=== PATIENT | male | born 1960 | race Caucasian/White ===

== ENCOUNTER 2018-05-31 12:12 | Inpatient (IN) | payer SELFPAY ==
[~2018-05-31] VITALS: Ht 177.8 cm; Wt 66.4 kg
[~2018-05-31 12:12] MED LIST: LISINOPRIL20 MG; SIMVASTATIN80 MG; ZETIA10 MG
[2018-05-31 13:00] LABS: HEMATOCRIT 38.9 % (38.0-50.0); HEMOGLOBIN 14.3 G/DL (12.5-16.6); MCH 33.8 PG (29.0-34.0); MCHC 36.8 G/DL (30.0-36.0); PLATELET COUNT 241 K/uL (156-360); RBC DIS.WIDTH-CV 11.5 % (11.8-14.6); RBC DIS.WIDTH-SD 38.9 % (39-53); RED BLOOD COUNT 4.23 M/uL (4.00-5.50); WHITE BLOOD COUNT 14.4 K/uL (4.1-10.2)
[2018-05-31 13:10] LABS: CHLORIDE 95 mEq/L (99-109); POTASSIUM 4.5 mEq/L (3.7-5.4); SODIUM 129 mEq/L (136-147)
[2018-05-31 13:12] LABS: GLUCOSE 189 mg/dL (70-99)
[2018-05-31 13:16] LABS: CREATININE 3.4 mg/dL (0.6-1.3); GFR ESTIMATE (CALCULATED) 20 mL/min/ (58.99-99999); UREA NITROGEN (BUN) 71 mg/dL (9-23)
[2018-05-31] MEDS ORDERED: PRAVACHOL20 MG PO (15:02)
[2018-05-31] MEDS ORDERED: GLUCOPHAGE500 MG PO (15:02)
[2018-05-31] MEDS ORDERED: ZESTRIL20 MG PO (15:02)
[2018-05-31 20:27] VITALS: BP 148/80
[2018-06-01 00:17] VITALS: BP 142/74
[2018-06-01 03:54] VITALS: BP 150/81
[2018-06-01 06:49] LABS: HEMATOCRIT 36.6 % (38.0-50.0); MCH 32.9 PG (29.0-34.0); MCHC 35.5 G/DL (30.0-36.0); MCV 92.7 FL (86-99); PLATELET COUNT 188 K/uL (156-360); RBC DIS.WIDTH-CV 11.5 % (11.8-14.6); RBC DIS.WIDTH-SD 39.4 % (39-53); RED BLOOD COUNT 3.95 M/uL (4.00-5.50); WHITE BLOOD COUNT 9.2 K/uL (4.1-10.2)
[2018-06-01 07:29] LABS: ALBUMIN 3.4 G/DL (3.2-4.8); ALKALINE PHOSPHATASE 56 IU/L (3-129); ALT (GPT) 11 IU/L (3-49); AST (GOT) 12 IU/L (2-34); CHLORIDE 102 MEQ/L (99-109); POTASSIUM 4.1 MEQ/L (3.7-5.4); SODIUM 135 MEQ/L (136-147); TOTAL BILIRUBIN 0.5 MG/DL (0.0-1.0); TOTAL PROTEIN 5.9 G/DL (6.4-8.3); UREA NITROGEN (BUN) 41 mg/dL (9-23)
[2018-06-01 07:31] LABS: CREATININE 1.3 MG/DL (0.6-1.3); GLUCOSE 101 mg/dL (70-99)
[2018-06-01 07:32] LABS: GFR ESTIMATE (CALCULATED) > 59 mL/min/ (58.99-99999)
[2018-06-01 07:52] VITALS: BP 138/70
[2018-06-01 11:47] VITALS: BP 116/62
[2018-06-01 12:34] LABS: APPEARANCE CLEAR ((CLEAR)); BILIRUBIN NEGATIVE; BLOOD SMALL; COLOR YELLOW ((YELLOW)); GLUCOSE (STRIP) 150; KETONES 5; LEUKOCYTES NEGATIVE; NITRITE NEGATIVE; PROTEIN (STRIP) NEGATIVE; SPECIFIC GRAVITY 1.015 (1.000-1.030); UROBILINOGEN 0.2 MG/DL (0.2-1.0)
[2018-06-01 12:46] LABS: BACTERIA NONE SEEN /HPF; EPITHELIAL CELLS RARE /HPF; MUCUS NONE SEEN /LPF; RED BLOOD CELLS 0-5 /HPF (0-5); UCUL ADDED? NO; WHITE BLOOD CELLS 0-5 /HPF (0-5)
[2018-06-01 15:49] VITALS: BP 149/75
[2018-06-01] MEDS ORDERED: AMLODIPINE BESYL5 MG PO (17:00)
[2018-06-01] MEDS ORDERED: ADULT ASPIRIN81 MG PO (17:01)
[2018-06-01] MEDS ORDERED: GLIPIZIDE XL5 MG PO (17:01)
[2018-06-02 11:05] LABS: HEMOGLOBIN A1c (GLYCOHEMOGLOB) 7.9 % (Below 5.7)
== END 2018-06-01 18:26 | disposition home or self-care (01) | DRG 683 ==
LOC: EME 12:12 → 5SOUTH 17:09 → EDOF 17:09 → ENRESERV 17:11 → 5SOUTH 19:55
PROVIDERS: Emergency Medicine; Internal Medicine; Student in an Organized Health Care Education/Training Program
DX: N17.9 Acute kidney failure, unspecified (principal); I95.9 Hypotension, unspecified; E87.1 Hypo-osmolality and hyponatremia; E87.2 Acidosis; F10.20 Alcohol dependence, uncomplicated; E86.0 Dehydration; I25.10 Atherosclerotic heart disease of native coronary artery without angina pectoris; I10 Essential (primary) hypertension; E11.9 Type 2 diabetes mellitus without complications; Z95.1 Presence of aortocoronary bypass graft; Z91.19 Patient's noncompliance with other medical treatment and regimen; E86.1 Hypovolemia; Z87.891 Personal history of nicotine dependence; Z79.84 Long term (current) use of oral hypoglycemic drugs; K59.00 Constipation, unspecified
CPT/HCPCS: 70450; 71046; 74176; 80048; 80053; 81003; 82948; 83036; 83605; 83935; 84300; 85027; 87040; 99281; 99285; J1644; J1815; J7030; J7120